=== PATIENT | female | born 1985 | race Hispanic/Latino ===

== ENCOUNTER 2017-08-11 21:12 | Emergency (ER) | payer MEDICAID ==
[2017-08-11 21:33] VITALS: BP 141/81
== END 2017-08-11 21:53 | disposition left against medical advice (07) ==
LOC: ED 21:12
DX: R10.9 Unspecified abdominal pain (principal); Z53.21 Procedure and treatment not carried out due to patient leaving prior to being seen by health care provider

== ENCOUNTER 2017-08-16 10:50 | Emergency (ER) | payer MEDICAID ==
[2017-08-16 11:46] LABS: Basophils # (Auto) 0.1 K/mm3 (0.0-0.1); Basophils % (Auto) 1.2 % (0.0-1.8); Eosinophils # (Auto) 0.2 K/mm3 (0.0-0.4); Eosinophils % (Auto) 1.9 % (0.0-4.3); Hematocrit 39.2 % (30.3-42.9); Hemoglobin 13.6 gm/dl (10.1-14.3); Lymphocytes # (Auto) 2.4 K/mm3 (1.2-5.4); Lymphocytes % (Auto) 30.3 % (13.4-35.0); Mean Corpuscular HGB Conc 35 % (30-34); Mean Corpuscular Hemoglobin 30 pg (28-32); Mean Corpuscular Volume 86 fl (79-97); Monocytes # (Auto) 0.5 K/mm3 (0.0-0.8); Monocytes % (Auto) 6.4 % (0.0-7.3); Platelet Count 228 K/mm3 (140-440); Red Blood Count 4.58 M/mm3 (3.65-5.03); Red Cell Distribution Width 12.9 % (13.2-15.2)
[2017-08-16 12:33] LABS: Bilirubin,Urine NEG (Negative); Blood,Urine MOD (Negative); Color,Urine Yellow (Yellow); Mucus,Urine FEW /HPF; Protein,Urine <15 mg/dL mg/dL (Negative); Urobilinogen,Urine < 2.0 mg/dL (<2.0)
--- NOTE | 2017-08-16 14:47 | Ultrasound Report ---
ULTRASOUND OB LESS THAN 14 WEEKS - TRANSABDOMINAL AND TRANSVAGINAL INDICATION: , vaginal spotting. COMPARISON: None similar during this gestation. FINDINGS: Transabdominal and transvaginal pelvic sonography performed in this patient with LMP of 06/28/2017 and estimated menstrual age of 7 weeks and zero days. It demonstrates a retroverted, gravid uterus estimated at 9 x 6.8 x 7.5 cm with a single, viable intrauterine gestation with heart rate of 123 beats per minute. Mean gestational sac diameter of 1.89 cm corresponds to 6 weeks and 6 days. Mean crown-rump length of 0.52 cm corresponds to 6 weeks and 2 days. A 3-4 mm yolk sac also noted. Small pelvic free fluid with few low level intrinsic echoes noted. Cervix closed. Unremarkable 4.4 x 1.8 x 3 cm left ovary. Right ovary is 4 x 2.5 x 3.6 cm and demonstrates a 2.4 x 1.6 cm solid intrinsic focus, endovaginal image 27, possibly hemorrhagic cyst/corpus luteum. Small right paraovarian fluid also incidentally noted. CONCLUSION: 1. Single, live intrauterine gestation with an ultrasound estimated age of 6 weeks and 4 days and MICH of 04/07/2018. 2. Other findings, as above. Thank you for the opportunity to participate in this patient's care.
--- NOTE | 2017-08-16 18:40 | Emergency Department Report ---
ED Female HPI - General Chief complaint: Vaginal Bleeding Stated complaint: 9 WKS PREG./VAG BLEEDING Time Seen by Provider: 08/16/17 18:31 Source: patient Mode of arrival: Ambulatory Limitations: No Limitations - History of Present Illness Initial comments: Patient is 8 para 1 with 6 miscarriages. Patient presented to the ER complaining of vaginal bleeding that started this morning was mild abdominal cramps. Patient denied any fever, nausea or vomiting. No chest pain or shortness of breath. MD Complaint: vaginal bleeding -: This morning Radiation: non-radiating Severity: mild Quality: cramping - Related Data Home Medications Medication Instructions Recorded Confirmed Last Taken Insulin NPH Human Isophane 0 02/05/13 02/05/13 02/04/13 [Humulin N] 0900 Insulin Regular, Human [Humulin R] 02/05/13 02/05/13 02/04/13 09:00 52 Previous Rx's Medication Instructions Recorded Last Taken Type NIFEdipine*For Tocolysis only* 10 mg PO TID #90 capsule 02/06/13 Unknown Rx [Procardia] Docusate Sodium [Colace] 100 mg PO BID PRN #60 capsule 03/07/13 Unknown Rx Ferrous Sulfate [Feosol 325 MG tab] 325 mg PO QDAY #30 tablet 03/07/13 Unknown Rx Ibuprofen [Motrin] 600 mg PO Q6H PRN #30 tablet 03/07/13 Unknown Rx Oxycodone HCl/Acetaminophen 1 each PO Q4HR PRN #30 tablet 03/07/13 Unknown Rx [Percocet 10-325 mg] HYDROcodone/APAP 5-325 [Paradis 1 each PO Q6HR PRN #20 tablet 09/23/13 Unknown Rx 5/325 mg] Naproxen [Naprosyn] 500 mg PO BID #30 tablet 09/23/13 Unknown Rx methOCARBAMOL [Robaxin] 500 mg PO BID #30 tab 09/23/13 Unknown Rx traMADol [Ultram 50 MG tab] 50 mg PO Q6HR PRN #30 tablet 09/23/13 Unknown Rx Ibuprofen [Motrin] 800 mg PO Q8HR PRN #20 tablet 03/18/16 Unknown Rx Sulfamethoxazole/Trimethoprim 1 each PO BID #10 tablet 03/18/16 Unknown Rx [Bactrim DS TAB] Allergies Allergy/AdvReac Type Severity Reaction Status Date / Time No Known Allergies Allergy Verified 09/23/13 13:40 ED Review of Systems ROS: Stated complaint: 9 WKS PREG./VAG BLEEDING Other details as noted in HPI Comment: All other systems reviewed and negative Constitutional: denies: chills, fever Respiratory: denies: cough, orthopnea, shortness of breath, SOB with exertion Cardiovascular: denies: chest pain, palpitations Gastrointestinal: abdominal pain. denies: nausea, vomiting, diarrhea, constipation, hematemesis, hematochezia Musculoskeletal: denies: back pain Neurological: denies: headache, weakness, paresthesias ED Past Medical Hx - Past Medical History Hx Hypertension: No Hx Congestive Heart Failure: No Hx Diabetes: Yes Hx Deep Vein Thrombosis: No Hx Renal Disease: No Hx Sickle Cell Disease: No Hx Seizures: No Hx Asthma: No Hx COPD: No Hx HIV: No - Surgical History Additional Surgical History: - Social History Smoking Status: Never Smoker Substance Use Type: None - Medications Home Medications: Home Medications Medication Instructions Recorded Confirmed Last Taken Type Insulin NPH Human Isophane 0 02/05/13 02/05/13 02/04/13 History [Humulin N] 0900 Insulin Regular, Human [Humulin R] 02/05/13 02/05/13 02/04/13 09:00 History 52 NIFEdipine*For Tocolysis only* 10 mg PO TID #90 capsule 02/06/13 Unknown Rx [Procardia] Docusate Sodium [Colace] 100 mg PO BID PRN #60 capsule 03/07/13 Unknown Rx Ferrous Sulfate [Feosol 325 MG tab] 325 mg PO QDAY #30 tablet 03/07/13 Unknown Rx Ibuprofen [Motrin] 600 mg PO Q6H PRN #30 tablet 03/07/13 Unknown Rx Oxycodone HCl/Acetaminophen 1 each PO Q4HR PRN #30 tablet 03/07/13 Unknown Rx [Percocet 10-325 mg] HYDROcodone/APAP 5-325 [Paradis 1 each PO Q6HR PRN #20 tablet 09/23/13 Unknown Rx 5/325 mg] Naproxen [Naprosyn] 500 mg PO BID #30 tablet 09/23/13 Unknown Rx methOCARBAMOL [Robaxin] 500 mg PO BID #30 tab 09/23/13 Unknown Rx traMADol [Ultram 50 MG tab] 50 mg PO Q6HR PRN #30 tablet 09/23/13 Unknown Rx Ibuprofen [Motrin] 800 mg PO Q8HR PRN #20 tablet 03/18/16 Unknown Rx Sulfamethoxazole/Trimethoprim 1 each PO BID #10 tablet 03/18/16 Unknown Rx [Bactrim DS TAB] ED Physical Exam - General Limitations: No Limitations General appearance: alert, in no apparent distress - Head Head exam: Present: atraumatic, normocephalic, normal inspection - Eye Eye exam: Present: normal appearance, PERRL - ENT ENT exam: Present: normal exam, normal orophraynx, mucous membranes moist - Neck Neck exam: Present: normal inspection, full ROM. Absent: tenderness, meningismus, lymphadenopathy, thyromegaly - Respiratory Respiratory exam: Present: normal lung sounds bilaterally. Absent: respiratory distress, wheezes, rales, rhonchi, stridor, chest wall tenderness, accessory muscle use, decreased breath sounds, prolonged expiratory - Cardiovascular Cardiovascular Exam: Present: regular rate, normal rhythm, normal heart sounds - GI/Abdominal GI/Abdominal exam: Present: soft, normal bowel sounds. Absent: distended, tenderness, guarding, rebound, rigid, organomegaly, mass, bruit, pulsatile mass , hernia - Extremities Exam Extremities exam: Present: normal inspection, full ROM, normal capillary refill - Back Exam Back exam: Present: normal inspection, full ROM. Absent: tenderness, CVA tenderness (R), CVA tenderness (L), muscle spasm, paraspinal tenderness, vertebral tenderness - Neurological Exam Neurological exam: Present: alert, oriented X3, CN II-XII intact, normal gait - Skin Skin exam: Present: warm, intact, normal color ED Course Vital Signs 08/16/17 08/16/17 11:10 17:48 Temperature 98.1 F 97.8 F Pulse Rate 83 88 Respiratory 18 18 Rate Blood Pressure 135/81 Blood Pressure 126/71 [Left] O2 Sat by Pulse 99 98 Oximetry ED Medical Decision Making - Lab Data Result diagrams: 08/16/17 11:28 - Radiology Data Radiology results: report reviewed Referring Physician: ED DOC Patient Name: DORIS HARRIS Date of : 1985 Sex: Female Report Date: 2017-08-16 Report Status: Finalized Findings [facility] [address] [place] [address] Ultrasound Report Signed Patient: DORIS HARRIS MR#: [id number] : 1985 Acct:[id number] Age/Sex: 32 / F ADM Date: 08/16/17 Loc: ED Attending Dr: Ordering Physician: JESENIA VELARDE MD Date of Service: 08/16/17 Procedure(s): US OB transvaginal Accession Number(s): [id number] cc: JESENIA VELARDE MD ULTRASOUND OB LESS THAN 14 WEEKS - TRANSABDOMINAL AND TRANSVAGINAL INDICATION: , vaginal spotting. COMPARISON: None similar during this gestation. FINDINGS: Transabdominal and transvaginal pelvic sonography performed in this patient with LMP of 06/28/2017 and estimated menstrual age of 7 weeks and zero days. It demonstrates a retroverted, gravid uterus estimated at 9 x 6.8 x 7.5 cm with a single, viable intrauterine gestation with heart rate of 123 beats per minute. Mean gestational sac diameter of 1.89 cm corresponds to 6 weeks and 6 days. Mean crown-rump length of 0.52 cm corresponds to 6 weeks and 2 days. A 3-4 mm yolk sac also noted. Small pelvic free fluid with few low level intrinsic echoes noted. Cervix closed. Unremarkable 4.4 x 1.8 x 3 cm left ovary. Right ovary is 4 x 2.5 x 3.6 cm and demonstrates a 2.4 x 1.6 cm solid intrinsic focus, endovaginal image 27, possibly hemorrhagic cyst/corpus luteum. Small right paraovarian fluid also incidentally noted. CONCLUSION: 1. Single, live intrauterine gestation with an ultrasound estimated age of 6 weeks and 4 days and MICH of 04/07/2018. 2. Other findings, as above. Thank you for the opportunity to participate in this patient's care. Transcribed By: RS Dictated By: KADI SHERMAN MD Electronically Authenticated By: KADI SHERMAN MD Signed Date/Time: 08/16/17 144 DD/ 36 TD/TT: 08/16/17 1442 - Medical Decision Making Advised patient to follow-up with her OB doctor. Patient stated that she has an appointment tomorrow with her OB doctor. Critical care attestation.: If time is entered above; I have spent that time in minutes in the direct care of this critically ill patient, excluding procedure time. ED Disposition Clinical Impression: Abdominal pain affecting , Vaginal bleeding during Disposition: - TO HOME OR SELFCARE Is pt being admited?: No Condition: Stable Instructions: Abdominal Pain in (ED) Referrals: PRIMARY CARE, [Primary Care Provider] - 3-5 Days
[2017-08-16 19:48] VITALS: BP 122/76
== END 2017-08-16 20:04 | disposition home or self-care (01) ==
LOC: ED 10:50
DX: O26.891 Other specified pregnancy related conditions, first trimester (principal); R10.9 Unspecified abdominal pain; O20.9 Hemorrhage in early pregnancy, unspecified; Z3A.01 Less than 8 weeks gestation of pregnancy
CPT/HCPCS: 36415; 76801; 76817; 81001; 84702; 85025; 86850; 86900; 86901; 99284; J2790

== ENCOUNTER 2018-01-09 12:09 | Outpatient (CLI) | payer MEDICAID ==
[2018-01-09 14:03] VITALS: BP 120/65
[2018-01-09] MEDS ORDERED: LACTATED RINGERS 500 ML IV ONE (14:38)
--- NOTE | 2018-01-09 16:37 | Ultrasound Report ---
FINAL REPORT EXAM: US OB LIMITED HISTORY: decreased fluid TECHNIQUE: Transabdominal OB ultrasound. PRIORS: None currently available. FINDINGS: Single intrauterine . Presentation: Cephalic. heart rate: 141 BPM. Placenta: Anterior. Not completely evaluated. Amniotic fluid index: 20.4 cm. Within normal limits. IMPRESSION: Single live intrauterine .
== END 2018-01-09 16:47 | disposition home or self-care (01) ==
LOC: TRG 12:09
PROVIDERS: ATTEND Obstetrics & Gynecology
DX: O47.03 False labor before 37 completed weeks of gestation, third trimester (principal); O24.913 Unspecified diabetes mellitus in pregnancy, third trimester; O99.213 Obesity complicating pregnancy, third trimester; Z3A.30 30 weeks gestation of pregnancy
CPT/HCPCS: 59025; 76815; 82962; 96360; J7120

== ENCOUNTER 2019-07-01 15:37 | Emergency (ER) | payer MEDICAID ==
[2019-07-01 21:50] VITALS: BP 136/93
== END 2019-07-01 19:13 | disposition left against medical advice (07) ==
LOC: TRG 15:37 → ED 15:37 → TRG 15:38 → LD 15:47 → EDSTATUS 16:43 → ED 19:13
DX: R51 Headache (principal); M54.5 Low back pain; M25.521 Pain in right elbow; M25.561 Pain in right knee; Z53.21 Procedure and treatment not carried out due to patient leaving prior to being seen by health care provider
CPT/HCPCS: 82962

== ENCOUNTER 2019-10-27 20:09 | Outpatient (CLI) | payer MEDICAID ==
[2019-10-27] MEDS ORDERED: LACTATED RINGERS 1,000 ML IV ONE (21:09)
[2019-10-27 21:38] LABS: Basophils # (Auto) 0.1 K/mm3 (0.0-0.1); Basophils % (Auto) 1.4 % (0.0-1.8); Eosinophils % (Auto) 0.4 % (0.0-4.3); Hematocrit 35.7 % (30.3-42.9); Hemoglobin 12.1 gm/dl (10.1-14.3); Lymphocytes # (Auto) 2.6 K/mm3 (1.2-5.4); Lymphocytes % (Auto) 34.2 % (13.4-35.0); Mean Corpuscular HGB Conc 34 % (30-34); Mean Corpuscular Volume 83 fl (79-97); Monocytes # (Auto) 0.5 K/mm3 (0.0-0.8); Monocytes % (Auto) 7.2 % (0.0-7.3); Platelet Count 171 K/mm3 (140-440); Red Blood Count 4.31 M/mm3 (3.65-5.03); Red Cell Distribution Width 12.8 % (13.2-15.2)
[2019-10-27 21:43] LABS: Bacteria,Urine 2+ /HPF (Negative); Bilirubin,Urine NEG (Negative); Blood,Urine MOD (Negative); Color,Urine Yellow (Yellow); Mucus,Urine FEW /HPF; Urobilinogen,Urine < 2.0 mg/dL (<2.0)
[2019-10-27 23:01] VITALS: BP 165/94
[2019-10-27] MEDS ORDERED: BETAMET ACET/BETAMET NA PH 6 MG/ML INJ 5 ML MDV IM SCH (23:45)
[2019-10-28] MEDS ORDERED: FLU VACC QUAD 2019-20 (3 YR UP)/PF 60 MCG/0.5 ML SYRINGE IM ONE (12:00)
[2019-10-28] MEDS ORDERED: PNEUMOCOCCAL 23 Valent 0.5 ML VIAL IM ONE (12:00)
== END 2019-10-27 23:30 | disposition home or self-care (01) ==
LOC: TRG 20:09 → APU 20:17 → TRG 23:30
PROVIDERS: ATTEND Obstetrics & Gynecology
DX: O36.8330 Maternal care for abnormalities of the fetal heart rate or rhythm, third trimester, not applicable or unspecified (principal); O36.8130 Decreased fetal movements, third trimester, not applicable or unspecified; O24.113 Pre-existing type 2 diabetes mellitus, in pregnancy, third trimester; E11.9 Type 2 diabetes mellitus without complications; O99.333 Smoking (tobacco) complicating pregnancy, third trimester; F17.200 Nicotine dependence, unspecified, uncomplicated; Z3A.35 35 weeks gestation of pregnancy
CPT/HCPCS: 36415; 59025; 81001; 82962; 85025; 86850; 86900; 86901; 87086; 96372; J0702; 96360; J7120

== ENCOUNTER 2019-10-28 12:48 | Inpatient (IN) | payer MEDICAID ==
[2019-10-28] MEDS ORDERED: LACTATED RINGERS 500 ML IV ONE (14:00)
[2019-10-28 14:14] LABS: Alanine Aminotransferase 16 units/L (7-56); Uric Acid 4.5 mg/dL (3.5-7.6)
[2019-10-28] MEDS ORDERED: MAGNESIUM HYDROXIDE (MOM) ORAL LIQD UDC PO PRN (15:52)
[2019-10-28] MEDS ORDERED: ONDANSETRON 4 MG/2 ML INJ IV PRN (15:52)
[2019-10-28] MEDS ORDERED: SODIUM CHLORIDE NASAL SPRAY 44ML NS PRN (15:52)
[2019-10-28 16:25] LABS: Bilirubin,Urine NEG (Negative); Blood,Urine NEG (Negative); Color,Urine Yellow (Yellow); Mucus,Urine FEW /HPF; Urobilinogen,Urine < 2.0 mg/dL (<2.0)
[2019-10-28 16:34] LABS: Amphetamine Screen,Urine PRESUMPTIVE NEGATIVE; Benzodiazepines Screen,Urine PRESUMPTIVE NEGATIVE; Cannabinoid Screen,Urine PRESUMPTIVE NEGATIVE; Cocaine Screen,Urine PRESUMPTIVE NEGATIVE; Methadone Screen,Urine PRESUMPTIVE NEGATIVE; Opiate Screen,Urine PRESUMPTIVE NEGATIVE
[2019-10-28] MEDS ORDERED: INSULIN REGULAR, HUMAN 100 UNITS/1 ML SUB-Q SCH (17:00)
--- NOTE | 2019-10-28 17:02 | Ultrasound Report ---
ULTRASOUND OBSTETRIC LIMITED ULTRASOUND BIOPHYSICAL PROFILE INDICATION / CLINICAL INFORMATION: labor. Clinical Gestational Age (GA): 35.5 weeks.days COMPARISON: None available. FINDINGS: BREATHING MOVEMENT = 2 GROSS BODY MOVEMENT = 2 TONE = 2 QUALITATIVE AMNIOTIC FLUID VOLUME = 2 TOTAL BIOPHYSICAL SCORE = 8/8 HEART RATE (beats per minute): 161 AMNIOTIC FLUID INDEX (cm) = 15.3 (normal = 7-24 cm) PRESENTATION: Cephalic. ADDITIONAL FINDINGS: Placenta is anterior and grade 2. IMPRESSION: 1. Biophysical Score = 8/8 2. No evidence of placental abruption. Signer Name: Andrew Guzmán MD Signed: 10/28/2019 4:57 PM Workstation Name: [id number]
[2019-10-28] MEDS ORDERED: DEXTROSE 50% IN WATER (25GM) 50 ML SYRINGE IV PRN ×2 (17:04→17:32)
[2019-10-28] MEDS: INSULIN REGULAR, HUMAN 100 UNITS/1 ML SUB-Q PRN (19:45)
[2019-10-28] MEDS ORDERED: INSULIN NPH, HUMAN 100 UNIT/1 ML SUB-Q SCH (22:00)
[2019-10-28] MEDS ORDERED: BETAMET ACET/BETAMET NA PH 6 MG/ML INJ 5 ML MDV IM SCH (22:00)
[2019-10-29] MEDS: LACTATED RINGERS 1,000 ML IV SCH ×3 (01:24→14:52)
[2019-10-29] MEDS: ACETAMINOPHEN 325 MG TAB PO PRN ×2 (06:24→11:02)
[2019-10-29] MEDS: INSULIN REGULAR, HUMAN 100 UNITS/1 ML SUB-Q PRN ×3 (06:41→19:24)
--- NOTE | 2019-10-29 07:00 | History and Physical Report ---
History of Present Illness Date of examination: 10/29/19 Date of admission: 10/28/19 15:38 Chief complaint: contractions History of present illness: Pt is a 34 year old female MICH 11/27/19 by 19 wk yohana at 35w6d who presents with complaint of vaginal bleeding and contractions. In triage, no vaginal bleeding was noted and the patient's cervix was noted to be closed. However, upon further review of her history, the patient is an insulin dependent diabetic who was not taken insulin at all this and apart from an ultrasound in Jun 2019 did not have her first obstetric visit until earlier this week. She is Rh negative, and did not receive her Rhogam at 28 wks. The patient's blood pressures were elevated in triage as well so the decision was made to admit this patient for further observation, 24 hr urine collection, and initiation of insulin regimen. Past History Past Medical History: diabetes, other (Rh Negative ) Past Surgical History: section (x 2 ) Family/Genetic History: diabetes, heart disease Social history: no significant social history - Obstetrical History Expected Date of Delivery: 11/27/19 Actual Gestation: 35 Week(s) 6 Day(s) : 9 Para: 3 Hx # Term Pregnancies: 3 Number of Pregnancies: 0 Spontaneous Abortions: 5 Induced : 0 Number of Living Children: 3 Medications and Allergies Allergies Allergy/AdvReac Type Severity Reaction Status Date / Time No Known Allergies Allergy Verified 10/27/19 20:36 Home Medications Medication Instructions Recorded Confirmed Last Taken Type Insulin NPH Human Isophane 78 unit SQ QHS 02/05/13 03/14/18 03/13/18 22:00 History [Humulin N] Insulin Regular, Human [Humulin R] 48 unit SQ QAMDIAB 02/05/13 03/14/18 03/13/18 06:00 History Ferrous Sulfate 325 mg PO BID #30 tablet. 03/14/18 Unknown Rx Ibuprofen [Motrin] 600 mg PO Q8H PRN #30 tablet 03/14/18 Unknown Rx Insulin NPH, Human [NovoLIN N] 68 unit SQ QAMDIAB 03/14/18 03/14/18 03/13/18 06:00 History Insulin Regular, Human [Novolin R] 58 unit SQ QPM 03/14/18 03/14/18 03/13/18 20:00 History Multivitamin Tablet 1 tab PO QDAY 03/14/18 03/14/18 03/13/18 06:00 History oxyCODONE /ACETAMINOPHEN [Percocet 1 tab PO Q6HR PRN #30 tablet 03/14/18 Unknown Rx 5/325] Cefuroxime Axetil [Ceftin] 500 mg PO Q12H #16 ml 03/17/18 Unknown Rx Famotidine [Pepcid] 20 mg PO BID #20 tablet 03/17/18 Unknown Rx Sertraline [Zoloft] 50 mg PO QDAY #30 tablet 03/17/18 Unknown Rx Zolpidem Tartrate [Ambien] 5 mg PO QHS #3 tablet 03/17/18 Unknown Rx cephALEXin [Keflex] 500 mg PO Q12HR #14 cap 03/17/18 Unknown Rx Cefuroxime Axetil [Ceftin] 500 mg PO Q12H #14 tab 03/18/18 Unknown Rx Adults Multivitamin Tablet 1 PO DAILY 10/27/19 10/27/19 09:00 History Hair, Skin and Nails Gummies 1 PO 10/27/19 10/26/19 09:00 History Tylenol 650 mg PO PRN 10/27/19 10/27/19 10/26/19 22:00 History Active Meds: Active Medications Acetaminophen (Tylenol) 650 mg PO Q4H PRN PRN Reason: Pain MILD(1-3)/Fever >100.5/NIETO Last Admin: 10/29/19 06:24 Dose: 650 mg Documented by: Dextrose (D50w (25gm) Syringe) 50 ml IV Q30MIN PRN; Protocol PRN Reason: Hypoglycemia Dextrose (D50w (25gm) Syringe) 50 ml IV Q30MIN PRN; Protocol PRN Reason: Hypoglycemia Docusate Sodium (Colace) 100 mg PO Q12H PRN PRN Reason: Constipation Lactated Ringer's (Lactated Ringers) 1,000 mls @ 125 mls/hr IV DIRECT ZEB Last Admin: 10/29/19 01:24 Dose: 125 mls/hr Documented by: Insulin Human NPH (Humulin N) 42 unit SUB-Q QDDIAB ZEB Insulin Human NPH (Humulin N) 15 unit SUB-Q QHS ZEB Insulin Human Regular (Humulin R) 22 units SUB-Q QDDIAB ZEB Insulin Human Regular (Humulin R) 15 units SUB-Q QPMDIAB ZEB Last Admin: 10/28/19 17:25 Dose: 15 units Documented by: Insulin Human Regular (Humulin R) 0 units SUB-Q Q6HR PRN; Protocol PRN Reason: Hyperglycemia Last Admin: 10/29/19 06:41 Dose: 6 units Documented by: Labetalol HCl (Labetalol) 200 mg PO BID ZEB Last Admin: 10/28/19 22:47 Dose: 200 mg Documented by: Magnesium Hydroxide (Milk Of Magnesia) 30 ml PO QHS PRN PRN Reason: Laxative Effect Multivitamins/Iron/Calcium ( Vitamin) 1 each PO QDAY [facility] Ondansetron HCl (Zofran) 4 mg IV Q6H PRN PRN Reason: Nausea And Vomiting Sodium Chloride (Deep Sea) 2 spray NS Q4H PRN PRN Reason: Congestion Review of Systems All systems: negative - Vital Signs Vital signs: Vital Signs Pulse Pulse Ox 111 H 97 10/28/19 13:06 10/28/19 13:06 Temp Pulse Resp BP Pulse Ox 97.7 F 115 H 18 118/63 98 10/29/19 02:20 10/29/19 05:54 10/29/19 06:47 10/29/19 05:30 10/29/19 05:54 - Physical Exam Breasts: Positive: deferred Abdomen: Positive: soft (obese, gravid ) Uterus: Positive: enlarged (gravid ) Extremities: Positive: normal - Obstetrical FHR: auscultation normal Uterine Contraction Monitor Mode: External Uterine Contraction Pattern: Irregular Uterine Tone Measurement Phase: Resting Results Result Diagrams: 10/28/19 13:40 Abnormal lab results 10/28/19 10/28/19 10/28/19 Range/Units 13:39 13:40 19:46 Creatinine 0.6 L (0.7-1.2) mg/dL POC Glucose 248 H 253 H (70-105) Lactate Dehydrogenase 243 H (91-180) units/L Ur Specific [place] (1.003-1.030) Urine Total Protein (5-11.8) mg/dL 10/28/19 10/28/19 10/29/19 Range/Units Unknown Unknown 06:33 Creatinine (0.7-1.2) mg/dL POC Glucose 307 H (70-105) Lactate Dehydrogenase (91-180) units/L Ur Specific [place] 1.031 H (1.003-1.030) Urine Total Protein 74 H (5-11.8) mg/dL All other labs normal. Assessment and Plan A: IUP at 35w6d; pt now s/p 2 doses of betamethasone; BPP 8/8 10/28/19 Insufficient Care Insulin Dependent Diabetes, non-complaint Gestational Hypertension, evaluate for preeclampsia; currently on Labetalol 200 mg BID Obesity Rh Negative, no Rhogam at 28 wks Previous x 2 P: Admit to antepartum service Begin insulin regimen, anticipate increased glucose after steroid administration 24 hr urine collection for total protein Rhogam workup MFM consult Ultrasound for EFW
[2019-10-29] MEDS ORDERED: INSULIN REGULAR, HUMAN 100 UNITS/1 ML SUB-Q SCH (08:00)
[2019-10-29] MEDS ORDERED: INSULIN NPH, HUMAN 100 UNIT/1 ML SUB-Q SCH (08:00)
--- NOTE | 2019-10-29 08:56 | Ultrasound Report ---
ULTRASOUND OBSTETRIC, follow-up Indication: IUP 35 wks, limited care Findings: There is a single intrauterine . BPD = 8.6 cm = 34 weeks, 5 day(s). Head circumference = 32.2 cm = 36 weeks, 2 day(s). Note: Difficult to measure due to position. Abdominal circumference = 37.3 cm = 41 weeks, 2 day(s). Femur length = 7.4 cm = 38 weeks, 0 day(s). Overall estimated sonographic age = 37 weeks, 4 day(s). heart rate is 150 beats per minute. Estimated weight is 3676 grams position is cephalic. Placenta is anterior and grade 2 . Amniotic fluid volume appears normal. Impression: 1. Single living intrauterine with estimated sonographic age of 37 weeks, 4 day(s). 2. No sonographic abnormality identified. Signer Name: Gary Arguello MD Signed: 10/29/2019 8:52 AM Workstation Name: [id number]
--- NOTE | 2019-10-29 10:22 | Consultation ---
History of Present Illness Consult date: 10/29/19 History of present illness: Ms. Khanna is a 34 year old currently at 35+6wks GA with a history of type 2 diabetes mellitus with non-compliance who presented to [facility] in the setting of vaginal bleeding and contractions. The patient was ruled out for labor. While in the OB Triage area, she was noted to have elevated blood pressures and was admitted for r/o preeclampsia as well as initiation of her insulin regimen, as she reports that she has not been taking it. Of note, the patient has not been seen by Maternal Medicine since 06/2019 due to being scared to leave her house due to COVID-19. Currently, the patient states that she has a 4/10 frontal headache that has been present for 1 wek. She denies any headache history. She did receive 650mg of tylenol this AM without any effect. She also states that her vision is persistently blurry. She denies any ruq pain. She denies CTX/VB/LOF. +FM. Past History Past Medical History: diabetes, other (Rh Negative ) Past Surgical History: section (x 2 ) Family/Genetic History: diabetes, heart disease - Obstetrical History : 9 Medications and Allergies Allergies Allergy/AdvReac Type Severity Reaction Status Date / Time No Known Allergies Allergy Verified 10/27/19 20:36 Home Medications Medication Instructions Recorded Confirmed Last Taken Type Insulin Regular, Human [Humulin R] 48 unit SQ QAMDIAB 02/05/13 10/29/19 03/13/18 06:00 History Insulin NPH, Human [NovoLIN N] 68 unit SQ QAMDIAB 03/14/18 10/29/19 03/13/18 06:00 History Insulin Regular, Human [Novolin R] 58 unit SQ QPM 03/14/18 10/29/19 03/13/18 20:00 History Multivitamin Tablet 1 tab PO QDAY 03/14/18 10/29/19 03/13/18 06:00 History Tylenol 650 mg PO PRN 10/27/19 10/29/19 10/26/19 22:00 History Active Meds: Active Medications Acetaminophen (Tylenol) 650 mg PO Q4H PRN PRN Reason: Pain MILD(1-3)/Fever >100.5/NIETO Last Admin: 10/29/19 06:24 Dose: 650 mg Documented by: Dextrose (D50w (25gm) Syringe) 50 ml IV Q30MIN PRN; Protocol PRN Reason: Hypoglycemia Dextrose (D50w (25gm) Syringe) 50 ml IV Q30MIN PRN; Protocol PRN Reason: Hypoglycemia Docusate Sodium (Colace) 100 mg PO Q12H PRN PRN Reason: Constipation Lactated Ringer's (Lactated Ringers) 1,000 mls @ 125 mls/hr IV DIRECT [facility] Last Admin: 10/29/19 09:46 Dose: 125 mls/hr Documented by: Insulin Human NPH (Humulin N) 42 unit SUB-Q QDDIAB [facility] Last Admin: 10/29/19 08:03 Dose: 42 unit Documented by: Insulin Human NPH (Humulin N) 15 unit SUB-Q QHS [facility] Insulin Human Regular (Humulin R) 22 units SUB-Q QDDIAB [facility] Last Admin: 10/29/19 08:04 Dose: 22 units Documented by: Insulin Human Regular (Humulin R) 15 units SUB-Q QPMDIAB [facility] Last Admin: 10/28/19 17:25 Dose: 15 units Documented by: Insulin Human Regular (Humulin R) 0 units SUB-Q Q6HR PRN; Protocol PRN Reason: Hyperglycemia Last Admin: 10/29/19 06:41 Dose: 6 units Documented by: Labetalol HCl (Labetalol) 200 mg PO BID [facility] Last Admin: 10/28/19 22:47 Dose: 200 mg Documented by: Magnesium Hydroxide (Milk Of Magnesia) 30 ml PO QHS PRN PRN Reason: Laxative Effect Multivitamins/Iron/Calcium ( Vitamin) 1 each PO QDAY [facility] Ondansetron HCl (Zofran) 4 mg IV Q6H PRN PRN Reason: Nausea And Vomiting Sodium Chloride (Deep Sea) 2 spray NS Q4H PRN PRN Reason: Congestion - Vital Signs Vital signs: Vital Signs Pulse Pulse Ox 111 H 97 10/28/19 13:06 10/28/19 13:06 Temp Pulse Resp BP Pulse Ox 98.2 F 93 H 16 132/71 97 10/29/19 07:34 10/29/19 07:47 10/29/19 07:34 10/29/19 07:34 10/29/19 07:47 - Physical Exam Abdomen: Positive: normal appearance, soft, other (No ruq/epigastric tenderness) - Obstetrical FHR: category 1 Uterine Contraction Pattern: Absent Results Result Diagrams: 10/28/19 13:40 Abnormal lab results 10/28/19 10/28/19 10/28/19 Range/Units 13:39 13:40 19:46 Creatinine 0.6 L (0.7-1.2) mg/dL POC Glucose 248 H 253 H (70-105) Lactate Dehydrogenase 243 H (91-180) units/L Ur Specific [place] (1.003-1.030) Urine Total Protein (5-11.8) mg/dL 10/28/19 10/28/19 10/29/19 Range/Units Unknown Unknown 06:33 Creatinine (0.7-1.2) mg/dL POC Glucose 307 H (70-105) Lactate Dehydrogenase (91-180) units/L Ur Specific [place] 1.031 H (1.003-1.030) Urine Total Protein 74 H (5-11.8) mg/dL All other labs normal. Ultrasound: pending, report reviewed, image reviewed, other (10/28/2019: EFW 3673g. Cephalic, BPP 12/12) Assessment and Plan IMPRESSIONS: IUP at 35+6 weeks gestation Type 2 diabets mellitus with non-compliance history, currently on NPH 42/, Regular / __/ New onset gestational hypertension with concern for preeclampsia with severe features Ordered for labetalol 200mg BID Rh negative Previous delivery x 2 s/p betamethasone per primary OBGYN Patient currently with headache and blurry vision Currently undergoing 24hr urine collection RECOMMENDATIONS: I had an extensive discussion with the patient regarding the pathophysiology of preeclampsia with the patient and its implications. I have reviewed the ACOG criteria for preeclampsia, as noted in Practice Bulletin #202 (May 2018). My concern at this point is that the patient has preeclampsia with severe features. Therefore, I do recommend the following: -Repeat CBC, CMP -Attempt to alleviate the patient's headache with conservative measures such a tylenol -Please obtain Neonatology consultation -If the patient has persistent headache or other signs of preeclampsia with severe features, magneisum sulfate for seizure prophylaxis should be initiated and the patient should be delivered. -If the patient does remain , complete 24hr urine. Delivery is then recommended at no later than 37 weeks. Contraindication to continued expectant management, in which delivery is indicated, include the following: -Persistent Cerbrovascular disturbances -Unrelenting right upper quadrant pain -Liver function tests greater than 2x the upper limit of normal -Thrombocytopenia <100,000/microL -Creatinine greater than 1.1 mg/dL -Eclampsia -Pulmonary edema -Hypertension requiring upward titration of oral agents or IV anti-hypetensives With respect to type 2 diabetes: The significance and management of pregestational diabetes in were reviewed. We discussed maternal risks including including preeclampsia, ashok an delivery, diabetic ketoacidosis, and progression of nephropathy or retinopathy. We also reviewed risks, including abnormalities of growth (intrauterine growth restriction or macrosomia), defects, hypoglycemia and hyperbilirubinemia, as well as the risk for stillbirth with sub optimal control. In addition, children of women with pregestational diabetes may have higher risks for diabetes and obesity later in life. Going forward: -The patient has received BMZ. Due to her poorly controlled diabetes, the patient will be experiencing hyperglycemia. Patients with poorly controlled diabetes were not administered late steroids in the ALPS trial (Deshawn et al, [facility], 2016) for this reason. Therefore, I do recommend the following: -Increase the patient's regimen by 20% to the following: NPH 50 units in the AM, 18 units in the PM. Regular insulin 26 units with breakfast and 20 units with dinner. -The following regular insulin sliding scale is recommended for postprandial values exceeding 140mg/dL: 2 units for blood sugars 140-160 4 units for blood sugars 161-180 6 units for blood sugars 181-200 8 units for blood sugars 201-220 10 units for blood sugars greater than 220 -The patient should have a consultation with Endocrinology while the patient is in house and likely , as she will need Endocrinology to manage her blood sugars when she is no longer . These recommendations were communicated to Dr. Malik at 1048AM.
[2019-10-29] MEDS: PRENATAL VIT27-FE FUMARATE-FOLIC ACID VIT TAB PO SCH (10:33)
[2019-10-29 13:30] LABS: Hemoglobin 11.1 gm/dl (10.1-14.3); Mean Corpuscular HGB Conc 34 % (30-34); Mean Corpuscular Volume 83 fl (79-97); Platelet Count 170 K/mm3 (140-440); Red Blood Count 3.97 M/mm3 (3.65-5.03); Red Cell Distribution Width 13.2 % (13.2-15.2)
[2019-10-29] MEDS ORDERED: METOCLOPRAMIDE 10 MG/2 ML INJ IV ONE (13:36)
[2019-10-29] MEDS ORDERED: BICITRA ORAL LIQD 30ML PO SCH (13:36)
[2019-10-29] MEDS ORDERED: FAMOTIDINE 20 MG/2 ML INJ IV SCH (13:36)
[2019-10-29 13:49] LABS: Alanine Aminotransferase 14 units/L (7-56); BUN/Creatinine Ratio 22; Blood Urea Nitrogen 13 mg/dL (7-17); Hemolysis Index 1
[2019-10-29] MEDS ORDERED: ceFAZolin/Water 2 GM/20 ML 2 GM/20 ML SYRINGE IV NR (14:00)
[2019-10-29] MEDS ORDERED: OXYTOCIN 20 UNIT/1000ML DRIP 20 UNITS/1,000 ML BAG IV SCH (14:00)
--- NOTE | 2019-10-29 14:56 | Anesthesia Day of Surgery ---
Anesthesia Day of Surgery - Day of Surgery Patient Examined: Yes Patient H&P Reviewed: Yes Patient is NPO: Yes Beta Blockers: No Cardiac Clearance: No Pulmonary Clearance: No Gabo's Test: N/A
[2019-10-29] MEDS ORDERED: NALOXONE 0.4 MG/1 ML INJ IV PRN (14:58)
[2019-10-29] MEDS ORDERED: ONDANSETRON 4 MG/2 ML INJ IV PRN (14:58)
--- NOTE | 2019-10-29 14:58 | Anesthesia Consultation ---
Anesthesia Consult and Med Hx Date of service: 10/29/19 - Airway Anesthetic Teeth Evaluation: Poor ROM Head & Neck: Adequate Mental/Hyoid Distance: Adequate Mallampati Class: Class III Intubation Access Assessment: Probably Good - Pulmonary Exam CTA: Yes - Cardiac Exam Cardiac Exam: RRR - Pre-Operative Health Status ASA Pre-Surgery Classification: ASA3 Proposed Anesthetic Plan: Spinal - Pulmonary Hx Smoking: No Hx Asthma: No Hx Respiratory Symptoms: No SOB: No COPD: No Home Oxygen Therapy: No Hx Pneumonia: No Hx Sleep Apnea: No - Cardiovascular System Hx Hypertension: Yes (With previous ) Hx Coronary Artery Disease: No Hx Heart Attack/AMI: No Hx Angina: No Hx Percutaneous Transluminal Coronary Angioplasty (PTCA): No Hx Cardia Arrhythmia: No Hx Pacemaker: No Hx Internal Defibrillator: No Hx Valvular Heart Disease: No Hx Heart Murmur: No Hx Peripheral Vascular Disease: No - Central Nervous System Hx Neuromuscular Disorder: No Hx Seizures: No CVA: No Hx Back Pain: No Hx Psychiatric Problems: Yes (depression / no meds at time) - Gastrointestinal Hx Ulcer: No Hx Gastroesophageal Reflux Disease: No - Endocrine Hx Renal Disease: No Hx End Stage Renal Disease: No Hx Cirrhosis: No Hx Liver Disease: No Hx Insulin Dependent Diabetes: Yes (uncontrolled) Hx Non-Insulin Dependent Diabetes: No Hx Thyroid Disease: No Hx Hypothyroidism: No Hx Hyperthyroidism: No - Hematic Hx Anemia: No Hx Sickle Cell Disease: No - Other Systems Hx Alcohol Use: No Hx Substance Use: No Hx Cancer: No Hx Obesity: Yes (BMI 37.4)
[2019-10-29] MEDS ORDERED: KETOROLAC 30 MG/1 ML INJ ONE (15:11)
[2019-10-29] MEDS ORDERED: ONDANSETRON 4 MG/2 ML INJ ONE (15:11)
[2019-10-29] MEDS ORDERED: DEXMEDETOMIDINE 200 MCG/2 ML VIAL IV ONE (15:12)
--- NOTE | 2019-10-29 15:27 | Procedure Note ---
OB Delivery Note - Delivery Date of Delivery: 10/29/19 Surgeon: COMPA MERINO Estimated blood loss: other (900 mL) - Section Preop diagnosis: repeat Postop diagnosis: same section procedure: repeat low transverse Disposition: PACU Complications: none - A at 1 minute: 5 at 5 minutes: 8 Gender: Female (Weight 7 pounds 0 ounces)
--- NOTE | 2019-10-29 15:27 | Event Note ---
Date: 10/29/19 Patient has had 2 doses of Tylenol without any resolution of her headache. She currently reports visual changes. The patient's impending condition is concerning for preeclampsia. We will proceed with a repeat delivery. The patient declines sterilization.
--- NOTE | 2019-10-29 15:28 | Operative Report ---
Operative Report Operative Report: Date of surgery: October 29, 2019 Preoperative diagnosis: Uncontrolled insulin-dependent diabetes; Severe preec lampsia; no care; previous delivery; at 35+6 weeks Postoperative diagnosis: Same as above Procedure: Repeat delivery and lysis of adhesions Surgeon: Carla Meehan M.D. Anesthesia: Regional Estimated blood loss: 900 mL Urine output: 600 mL IV fluids: 1300 mL Findings: Liveborn female with Apgars of 5 and 8 weight 7 pounds 0 ounces Indications: 34-year-old -0-5-3 at 35+6 weeks who presents to the antepartum service for observation secondary to noncompliance with her insulin- dependent diabetes. The patient has not had care during this and has not been taking her insulin. She presents with elevated blood pressures, persistent headache that has been unresolved with medical management and visual changes. Procedure: The patient was taken to the operating room and given regional anesthesia without complication. She was prepped and draped in a normal sterile fashion. A Pfannenstiel skin incision was made down to layer the fascia which was nicked in the midline extended laterally with the Bovie cautery. The superior aspect of the rectus fascia was grasped with Rosanne clamps x2 and the rectus muscles off sharply. The fascia was noted to be thickened and scarred. This was done in inferior fashion as well. The rectus muscle midline and peritoneum entered bluntly. An Binh retractor was then inserted. A bladder blade was placed. The vesicouterine peritoneum was then entered sharply with Metzenbaum scissors. A bladder flap was created digitally. The lower uterine segment was noted to be thinned prior to the incision. A low transverse uterine incision was then made and extended digitally. There was clear fluid upon entry into the uterine cavity. The head was delivered through the incision with fundal pressure. A nuchal cord x1 was manually reduced. The cord was clamped and cut x2 and was passed off to pediatrics. The placenta was then manually extracted. The uterus was then exteriorized and cleared of clots and debris. The uterine incision was then closed in a running locked fashion with 0 Vicryl additional imbricating stitch was applied for 2 layer closure. The posterior cul-de-sac was then copiously irrigated. The uterus was replaced back into the abdomen and pelvis were the gutters were then irrigated. The Binh retractor was then removed. The peritoneum was then reapproximated with 3-0 Vicryl incorporating the rectus muscle. The fascia was then closed with 0 Vicryl in a running fashion. The skin was then reapproximated with 3-0 Monocryl on a Huber needle subcuticular fashion. Steri-Strips to place across the incision and a Crede procedures performed at the end of the surgery. A pressure dressing was applied to the incision. The surgery productive of a liveborn female with Apgars of 5 and 8 weight 7 pounds 0 ounces. The patient was taken to the recovery room in stable condition. All sponge laps and needle counts correct x2.
[2019-10-29] MEDS ORDERED: WATER FOR IRRIG STERILE 1,500 ML BOTTLE IR ONE (15:48)
[2019-10-29] MEDS ORDERED: SODIUM CHLORIDE 0.9% IRR 1,500 ML BOTTLE IR ONE (15:48)
[2019-10-29] MEDS ORDERED: PHENYLEPHRINE 10 MG/1 ML INJ SDV ONE (15:52)
[2019-10-29] MEDS ORDERED: MAGNESIUM SULFATE 40GM/1000ML 40 GM/1,000 ML BAG IV SCH (17:00)
[2019-10-29] MEDS: HYDROmorphone 1 MG/1 ML INJ IV PRN ×2 (17:52→18:18)
[2019-10-29] MEDS: MAGNESIUM SULFATE 4 GM/100 ML BAG IV ONE ×2 (18:50→18:55)
--- NOTE | 2019-10-29 19:00 | Post Anesthesia Evaluation ---
- Post Anesthesia Evaluation Patient Participated: Yes Airway Patent: Yes Stable Respiratory Function: Yes Nausea/Vomiting: No Temp > 96.8F: Yes Pain Manageable: Yes Adequeate Hydration: Yes Anesthesia Complications: No Block Receding Appropriately: Yes Patient on Ventilator: No
[2019-10-29] MEDS ORDERED: DEXTROSE 50% IN WATER (25GM) 50 ML SYRINGE IV PRN (20:49)
--- NOTE | 2019-10-29 20:49 | Consultation ---
History of Present Illness - Reason for Consult Consult date: 10/29/19 DM Requesting physician: COMPA MERINO - History of Present Illness 34 YO Female with DM. Consult placed by Dr. Merino for DM. Patient resting comfortably in her room. Patient denies fever, chills, chest pain, palpitation, productive cough, polydipsia polyuria. No reported nursing events. Past History Past Medical History: diabetes Past Surgical History: Social history: no significant social history Family history: diabetes, hypertension Medications and Allergies Allergies Allergy/AdvReac Type Severity Reaction Status Date / Time No Known Allergies Allergy Verified 10/27/19 20:36 Home Medications Medication Instructions Recorded Confirmed Last Taken Type Insulin Regular, Human [Humulin R] 48 unit SQ QAMDIAB 02/05/13 10/29/19 03/13/18 06:00 History Insulin NPH, Human [NovoLIN N] 68 unit SQ QAMDIAB 03/14/18 10/29/19 03/13/18 06:00 History Insulin Regular, Human [Novolin R] 58 unit SQ QPM 03/14/18 10/29/19 03/13/18 20:00 History Multivitamin Tablet 1 tab PO QDAY 03/14/18 10/29/19 03/13/18 06:00 History Tylenol 650 mg PO PRN 10/27/19 10/29/19 10/26/19 22:00 History Active Meds: Active Medications Acetaminophen (Tylenol) 650 mg PO Q4H PRN PRN Reason: Pain MILD(1-3)/Fever >100.5/NIETO Last Admin: 10/29/19 11:02 Dose: 650 mg Documented by: Citric Acid/Sodium Citrate (Bicitra) 30 ml PO ONCE ZEB Stop: 10/30/19 23:00 Last Admin: 10/29/19 14:19 Dose: 30 ml Documented by: Dextrose (D50w (25gm) Syringe) 50 ml IV Q30MIN PRN; Protocol PRN Reason: Hypoglycemia Docusate Sodium (Colace) 100 mg PO Q12H PRN PRN Reason: Constipation Famotidine (Pepcid) 20 mg IV ONCE ZEB Stop: 10/29/19 23:00 Last Admin: 10/29/19 14:19 Dose: 20 mg Documented by: Hydromorphone HCl (Dilaudid) 0.5 mg IV Q5M PRN PRN Reason: BREAK Last Admin: 10/29/19 18:18 Dose: 0.5 mg Documented by: Lactated Ringer's (Lactated Ringers) 1,000 mls @ 125 mls/hr IV DIRECT [facility] Last Admin: 10/29/19 14:52 Dose: 125 mls/hr Documented by: Oxytocin/Sodium Chloride (Pitocin/Ns 20 Unit/1000ml Drip) 20 units in 1,000 mls @ 0 mls/hr IV TITR ZEB Cefazolin Sodium (Ancef/Sterile Water 2 Gm/20 Ml) 2 gm in 20 mls @ 80 mls/hr IV PREOP NR; Protocol Stop: 10/30/19 13:59 Magnesium Sulfate (Magnesium Sulfate 40gm/1000ml) 40 gm in 1,000 mls @ 50 mls/hr IV DIRECT ZEB Magnesium Sulfate (Magnesium Sulfate 4gm/100ml) 4 gm in 100 mls @ 25 mls/hr IV ONCE ONE Stop: 10/29/19 20:56 Last Admin: 10/29/19 18:55 Dose: 25 mls/hr Documented by: Insulin Human NPH (Humulin N) 42 unit SUB-Q QDDIAB [facility] Last Admin: 10/29/19 08:03 Dose: 42 unit Documented by: Insulin Human NPH (Humulin N) 15 unit SUB-Q QHS [facility] Insulin Human Regular (Humulin R) 22 units SUB-Q QDDIAB [facility] Last Admin: 10/29/19 08:04 Dose: 22 units Documented by: Insulin Human Regular (Humulin R) 15 units SUB-Q QPMDIAB [facility] Last Admin: 10/28/19 17:25 Dose: 15 units Documented by: Insulin Human Regular (Humulin R) 0 units SUB-Q Q6HR PRN; Protocol PRN Reason: Hyperglycemia Last Admin: 10/29/19 19:24 Dose: 1 units Documented by: Labetalol HCl (Labetalol) 200 mg PO BID [facility] Last Admin: 10/29/19 10:34 Dose: 200 mg Documented by: Magnesium Hydroxide (Milk Of Magnesia) 30 ml PO QHS PRN PRN Reason: Laxative Effect Multivitamins/Iron/Calcium ( Vitamin) 1 each PO QDAY [facility] Last Admin: 10/29/19 10:33 Dose: 1 each Documented by: Naloxone HCl (Naloxone) 0.2 mg IV Q2MIN PRN PRN Reason: Res Rate </= 8 or 02 SAT < 92% Ondansetron HCl (Zofran) 4 mg IV Q8H PRN PRN Reason: Nausea And Vomiting Sodium Chloride (Deep Sea) 2 spray NS Q4H PRN PRN Reason: Congestion Review of Systems Constitutional: no weight loss, no weight gain, no fever, no chills Ears, nose, mouth and throat: no ear pain, no ear discharge, no tinnitis, no decreased hearing, no nose pain Breasts: no change in shape, no swelling, no mass Cardiovascular: no chest pain, no orthopnea, no rapid/irregular heart beat, no edema Respiratory: no cough, no cough with sputum, no excessive sputum, no shortness of breath Gastrointestinal: no nausea, no vomiting, no diarrhea Rectal: no pain, no incontinence, no bleeding Musculoskeletal: no neck stiffness, no neck pain, no shooting arm pain, no arm numbness/tingling Integumentary: no rash, no pruritis, no redness, no sores, no wounds Neurological: no head injury, no transient paralysis, no weakness, no parathesias, no tingling Psychiatric: no anxiety, no memory loss, no sleep disturbances, no hypersomnia, no change in appetite Endocrine: no cold intolerance, no polyphagia, no excessive thirst, no polyuria, no nocturia, no flushing Hematologic/Lymphatic: no easy bruising, no easy bleeding, no lymphadenopathy, no lymphedema Allergic/Immunologic: no urticaria, no allergic rhinitis, no persistent infections, no anaphylaxis Exam - Constitutional Vitals: Temp Pulse Resp BP Pulse Ox 98.0 F 79 18 132/73 96 10/29/19 20:16 10/29/19 20:45 10/29/19 20:16 10/29/19 20:45 10/29/19 18:00 General appearance: Present: obese - EENT Eyes: Present: PERRL ENT: hearing intact, clear oral mucosa - Neck Neck: Present: supple, normal ROM - Respiratory Respiratory effort: normal Respiratory: bilateral: CTA - Cardiovascular Heart Sounds: Present: S1 & S2. Absent: rub, click - Extremities Extremities: pulses symmetrical, No edema Peripheral Pulses: within normal limits - Abdominal General gastrointestinal: Present: soft, non-tender, non-distended, normal bowel sounds Female genitourinary: Present: normal - Integumentary Integumentary: Present: clear, warm, dry - Musculoskeletal Musculoskeletal: gait normal, strength equal bilaterally - Psychiatric Psychiatric: appropriate mood/affect, intact judgment & insight - Neurologic Neurologic: CNII-XII intact, moves all extremities Results - Labs CBC & Chem 7: 10/30/19 13:50 10/29/19 12:39 Labs: Abnormal lab results 10/28/19 10/29/19 10/29/19 Range/Units 19:46 06:33 10:56 Sodium (137-145) mmol/L Carbon Dioxide (22-30) mmol/L Creatinine (0.7-1.2) mg/dL Glucose (65-100) mg/dL POC Glucose 253 H 307 H 270 H (70-105) Total Protein (6.3-8.2) g/dL Albumin (3.9-5) g/dL Ur Total Protein 24 Hr (2-200) mg/dL Urine Total Protein (5-11.8) mg/dL 10/29/19 10/29/19 10/29/19 Range/Units 12:39 15:19 19:33 Sodium 134 L (137-145) mmol/L Carbon Dioxide 17 L (22-30) mmol/L Creatinine 0.6 L (0.7-1.2) mg/dL Glucose 235 H (65-100) mg/dL POC Glucose 187 H 148 H (70-105) Total Protein 5.7 L (6.3-8.2) g/dL Albumin 3.0 L (3.9-5) g/dL Ur Total Protein 24 Hr (2-200) mg/dL Urine Total Protein (5-11.8) mg/dL 10/29/19 Range/Units Unknown Sodium (137-145) mmol/L Carbon Dioxide (22-30) mmol/L Creatinine (0.7-1.2) mg/dL Glucose (65-100) mg/dL POC Glucose (70-105) Total Protein (6.3-8.2) g/dL Albumin (3.9-5) g/dL Ur Total Protein 24 Hr 648.00 H (2-200) mg/dL Urine Total Protein 18 H (5-11.8) mg/dL Assessment and Plan - Patient Problems (1) Diabetes Current Visit: No Status: Acute Qualifiers: Diabetes mellitus type: type 2 Diabetes mellitus complication status: with unspecified complications Plan to address problem: Consistent carbohydrate diet, Accu-Chek, sliding scale insulin therapy, hypoglycemia protocol.
[2019-10-29] MEDS ORDERED: oxyCODONE /ACETAMINOPHEN 5-325MG TAB PO PRN (20:59)
[2019-10-29] MEDS: oxyCODONE /ACETAMINOPHEN 5-325MG TAB PO PRN (21:15)
[2019-10-30] MEDS: INSULIN LISPRO 100 UNIT/ML SUB-Q SCH ×3 (01:00→06:29)
[2019-10-30] MEDS: KETOROLAC 30 MG/1 ML INJ IV PRN ×3 (03:13→15:22)
--- NOTE | 2019-10-30 07:44 | Progress Note ---
Assessment and Plan A: POD1 s/p rLTCS Preeclampsia with severe features, on mag sulfate IDDM, s/p medicine consult Mild range BP Awaiting post-op H&H P: Consistent carbohydrate diet Sliding scale insulin Pain relief as requested Continue mag sulfate x24 hours post-op Subjective - Subjective Date of service: 10/30/19 Principal diagnosis: s/p repeat LTCS, severe preeclampsia Interval history: POD1 s/p repeat LTCS. On mag sulfate for preeclampsia with severe features. Denies NIETO, scotomata, RUQ pain. Patient reports: appetite normal, flatus, pain poorly controlled, other (Yusuf in place) : in NICU Objective - Vital Signs Latest vital signs: Vital Signs Temp Pulse Resp BP BP Pulse Ox 10/30/19 06:45 75 149/74 10/30/19 05:45 76 135/74 10/30/19 04:45 67 133/76 10/30/19 03:45 71 151/85 10/30/19 02:45 68 145/79 10/30/19 01:45 68 137/84 10/30/19 00:45 67 137/78 10/29/19 23:45 67 145/70 10/29/19 23:00 67 145/70 10/29/19 22:45 70 136/86 10/29/19 21:45 70 114/59 10/29/19 20:45 79 132/73 10/29/19 20:16 98.0 F 78 18 118/68 118/68 10/29/19 19:45 78 112/55 10/29/19 18:00 97.9 F 66 11 L 121/74 96 10/29/19 17:45 70 11 L 120/75 99 10/29/19 17:40 97.8 F 10/29/19 17:30 64 13 119/68 96 10/29/19 17:15 97.6 F 68 15 116/68 97 10/29/19 17:10 73 15 114/65 96 10/29/19 17:05 77 13 122/60 97 10/29/19 17:00 97.8 F 72 13 117/65 95 10/29/19 12:08 93 H 98 10/29/19 12:03 94 H 107/64 98 10/29/19 12:02 98 F 92 H 18 107/64 97 10/29/19 11:57 18 10/29/19 11:02 16 10/29/19 10:34 107 H 131/84 10/29/19 10:33 107 H 131/84 10/29/19 07:47 93 H 97 10/29/19 07:42 61 97 Intake and Output 10/29/19 10/29/19 10/30/19 15:59 23:59 07:59 Intake Total 4637.5 1500 Output Total 665 1150 Balance 4637.5 835 -1150 Intake: IV 4637.5 1500 Lactated Ringers 1,000 ml 1637.5 @ 125 mls/hr IV DIRECT ZEB Rx#:[id number] Left Proximal Port 3000 Forearm Output: Urine 665 1150 Indwelling 30 Indwelling Catheter 1150 Other: Total, Output Amount 300 Estimated Blood Loss 900 - Exam Lungs: Present: Normal air movement Abdomen: Present: soft. Absent: distention Uterus: Present: firm, fundal height below umbilicus. Absent: bogginess Incision: Present: dressed - Labs Labs: Abnormal lab results 10/29/19 10/29/19 10/29/19 Range/Units 10:56 12:39 15:19 Sodium 134 L (137-145) mmol/L Carbon Dioxide 17 L (22-30) mmol/L Creatinine 0.6 L (0.7-1.2) mg/dL Glucose 235 H (65-100) mg/dL POC Glucose 270 H 187 H (70-105) Magnesium (1.7-2.3) mg/dL Total Protein 5.7 L (6.3-8.2) g/dL Albumin 3.0 L (3.9-5) g/dL Ur Total Protein 24 Hr (2-200) mg/dL Urine Total Protein (5-11.8) mg/dL 10/29/19 10/29/19 10/30/19 Range/Units 19:33 Unknown 01:43 Sodium (137-145) mmol/L Carbon Dioxide (22-30) mmol/L Creatinine (0.7-1.2) mg/dL Glucose (65-100) mg/dL POC Glucose 148 H 151 H (70-105) Magnesium (1.7-2.3) mg/dL Total Protein (6.3-8.2) g/dL Albumin (3.9-5) g/dL Ur Total Protein 24 Hr 648.00 H (2-200) mg/dL Urine Total Protein 18 H (5-11.8) mg/dL 10/30/19 10/30/19 Range/Units 01:45 06:38 Sodium (137-145) mmol/L Carbon Dioxide (22-30) mmol/L Creatinine (0.7-1.2) mg/dL Glucose (65-100) mg/dL POC Glucose 133 H (70-105) Magnesium 3.30 H (1.7-2.3) mg/dL Total Protein (6.3-8.2) g/dL Albumin (3.9-5) g/dL Ur Total Protein 24 Hr (2-200) mg/dL Urine Total Protein (5-11.8) mg/dL
[2019-10-30] MEDS ORDERED: SODIUM CHLORIDE 0.9% 1000 ML 1,000 ML IV SCH (09:00)
[2019-10-30] MEDS: INSULIN REGULAR, HUMAN 100 UNITS/1 ML SUB-Q SCH ×3 (12:32→22:43)
[2019-10-30 14:26] LABS: Basophils % (Auto) 0.2 % (0.0-1.8); Eosinophils % (Auto) 0.3 % (0.0-4.3); Hematocrit 28.8 % (30.3-42.9); Hemoglobin 9.8 gm/dl (10.1-14.3); Lymphocytes # (Auto) 1.9 K/mm3 (1.2-5.4); Mean Corpuscular HGB Conc 34 % (30-34); Mean Corpuscular Volume 85 fl (79-97); Monocytes # (Auto) 0.7 K/mm3 (0.0-0.8); Monocytes % (Auto) 7.9 % (0.0-7.3); Platelet Count 153 K/mm3 (140-440); Red Blood Count 3.38 M/mm3 (3.65-5.03); Red Cell Distribution Width 13.2 % (13.2-15.2)
[2019-10-30] MEDS: oxyCODONE /ACETAMINOPHEN 5-325MG TAB PO PRN ×2 (15:23→22:40)
--- NOTE | 2019-10-30 15:39 | Progress Note ---
Assessment and Plan Diabetes mellitus type 2 -Continue consistent carb diet, monitor blood glucose QA CHS -Continue NPH twice daily before meals -Start on sliding scale of insulin qachs, check A1c -Monitor for hypoglycemia with hypoglycemia protocol - will d/c all other insulin HTN, cont BB s/p , Mx per primary DVT Px, ambulatory Subjective Date of service: 10/30/19 Principal diagnosis: s/p repeat LTCS, severe preeclampsia Objective - Constitutional Vitals: Vital Signs - 12hr 10/30/19 10/30/19 10/30/19 03:45 04:45 05:45 Temperature Pulse Rate 71 67 76 Respiratory Rate Blood Pressure 151/85 133/76 135/74 10/30/19 10/30/19 10/30/19 06:45 07:45 08:00 Temperature 97.8 F Pulse Rate 75 81 Respiratory Rate Blood Pressure 149/74 146/88 10/30/19 10/30/19 10/30/19 08:45 08:57 08:58 Temperature Pulse Rate 86 83 Respiratory 18 Rate Blood Pressure 140/85 141/84 10/30/19 10/30/19 10/30/19 09:45 10:45 11:05 Temperature Pulse Rate 82 77 77 Respiratory Rate Blood Pressure 155/88 147/79 147/79 10/30/19 10/30/19 10/30/19 11:45 12:45 13:45 Temperature Pulse Rate 91 H 88 88 Respiratory Rate Blood Pressure 143/86 150/84 115/73 10/30/19 10/30/19 10/30/19 14:45 15:26 15:34 Temperature Pulse Rate 86 84 86 Respiratory Rate Blood Pressure 124/70 131/76 128/70 - Labs CBC & Chem 7: 10/30/19 13:50 11/02/19 10:19 Labs: Abnormal lab results 10/29/19 10/29/19 10/30/19 Range/Units 19:33 Unknown 01:43 RBC (3.65-5.03) M/mm3 Hgb (10.1-14.3) gm/dl Hct (30.3-42.9) % [place] % (Auto) (0.0-7.3) % Seg Neutrophils % (40.0-70.0) % POC Glucose 148 H 151 H (70-105) Magnesium (1.7-2.3) mg/dL Ur Total Protein 24 Hr 648.00 H (2-200) mg/dL Urine Total Protein 18 H (5-11.8) mg/dL 10/30/19 10/30/19 10/30/19 Range/Units 01:45 06:38 13:50 RBC 3.38 L (3.65-5.03) M/mm3 Hgb 9.8 L (10.1-14.3) gm/dl Hct 28.8 L (30.3-42.9) % [place] % (Auto) 7.9 H (0.0-7.3) % Seg Neutrophils % 71.6 H (40.0-70.0) % POC Glucose 133 H (70-105) Magnesium 3.30 H (1.7-2.3) mg/dL Ur Total Protein 24 Hr (2-200) mg/dL Urine Total Protein (5-11.8) mg/dL 10/30/19 Range/Units 13:50 RBC (3.65-5.03) M/mm3 Hgb (10.1-14.3) gm/dl Hct (30.3-42.9) % [place] % (Auto) (0.0-7.3) % Seg Neutrophils % (40.0-70.0) % POC Glucose (70-105) Magnesium 4.00 H (1.7-2.3) mg/dL Ur Total Protein 24 Hr (2-200) mg/dL Urine Total Protein (5-11.8) mg/dL
[2019-10-30] MEDS ORDERED: INSULIN NPH, HUMAN 100 UNIT/1 ML SUB-Q SCH ×2 (17:02)
[2019-10-31] MEDS: oxyCODONE /ACETAMINOPHEN 5-325MG TAB PO PRN ×3 (06:37→23:13)
[2019-10-31] MEDS: INSULIN REGULAR, HUMAN 100 UNITS/1 ML SUB-Q SCH ×5 (06:38→23:14)
[2019-10-31] MEDS ORDERED: INSULIN REGULAR, HUMAN 100 UNITS/1 ML SUB-Q SCH ×2 (08:00→17:00)
[2019-10-31] MEDS: PRENATAL VIT27-FE FUMARATE-FOLIC ACID VIT TAB PO SCH (08:46)
[2019-10-31] MEDS: DOCUSATE SODIUM 100 MG CAP PO PRN (08:46)
--- NOTE | 2019-10-31 09:00 | Progress Note ---
Assessment and Plan - Patient Problems (1) Diabetes Current Visit: No Status: Acute Qualifiers: Diabetes mellitus type: type 2 Diabetes mellitus complication status: with unspecified complications Plan to address problem: Discussed the importance of continuing insulin regimen at home Consider discharge home tomorrow (2) Obesity Current Visit: No Status: Acute (3) S/P section Current Visit: No Status: Acute Subjective - Subjective Date of service: 10/31/19 Principal diagnosis: s/p repeat LTCS, severe preeclampsia Interval history: Postop day #2 status post a repeat delivery. The patient is currently under a sliding scale for her glucose controlled with maintenance insulin. She reports a desire to quit smoking. Reports some discomfort today after walking to the NICU. She is tolerating a regular diet. Patient reports: appetite normal, voiding normally [place]: in NICU Objective - Vital Signs Latest vital signs: Vital Signs Temp Pulse Resp BP BP Pulse Ox 10/31/19 08:46 75 147/89 10/31/19 08:05 98 F 75 18 147/89 97 10/31/19 04:00 98.6 F 79 18 113/62 10/31/19 00:00 98 F 80 16 118/69 10/30/19 22:40 74 134/83 10/30/19 20:25 66 159/91 10/30/19 20:24 75 128/74 10/30/19 20:23 98.3 F 81 18 142/78 96 10/30/19 20:22 81 130/72 10/30/19 19:30 97.7 F 18 10/30/19 19:19 88 139/82 10/30/19 18:45 77 133/73 10/30/19 17:45 82 139/79 10/30/19 16:45 82 134/80 10/30/19 15:45 90 123/77 10/30/19 15:34 86 128/70 10/30/19 15:26 84 131/76 10/30/19 14:45 86 124/70 10/30/19 14:05 98.3 F 10/30/19 13:45 88 115/73 10/30/19 12:45 88 150/84 10/30/19 11:45 91 H 143/86 10/30/19 11:05 77 147/79 10/30/19 10:45 77 147/79 10/30/19 09:45 82 155/88 Intake and Output 10/30/19 10/31/19 10/31/19 22:59 06:59 14:59 Intake Total 2000 300 240 Output Total 1000 1000 Balance 1000 -700 240 Intake: IV 2000 Left Proximal Port 2000 Forearm Oral 240 Intake, Free Water 300 Output: Urine 1000 1000 Indwelling Catheter 500 Void 500 1000 Other: Total, Intake Amount 240 Total, Output Amount 500 1000 # Voids Indwelling Catheter 2 Void 1 2 - Exam Abdomen: Present: normal appearance, soft - Labs Labs: Abnormal lab results 10/30/19 10/30/19 10/30/19 Range/Units 12:27 13:50 13:50 RBC 3.38 L (3.65-5.03) M/mm3 Hgb 9.8 L (10.1-14.3) gm/dl Hct 28.8 L (30.3-42.9) % [place] % (Auto) 7.9 H (0.0-7.3) % Seg Neutrophils % 71.6 H (40.0-70.0) % POC Glucose 228 H (70-105) Hemoglobin A1c (4-6) % Magnesium 4.00 H (1.7-2.3) mg/dL 10/30/19 10/30/19 10/30/19 Range/Units 13:50 16:56 22:35 RBC (3.65-5.03) M/mm3 Hgb (10.1-14.3) gm/dl Hct (30.3-42.9) % [place] % (Auto) (0.0-7.3) % Seg Neutrophils % (40.0-70.0) % POC Glucose 280 H 283 H (70-105) Hemoglobin A1c 9.2 H (4-6) % Magnesium (1.7-2.3) mg/dL 10/31/19 Range/Units 06:19 RBC (3.65-5.03) M/mm3 Hgb (10.1-14.3) gm/dl Hct (30.3-42.9) % [place] % (Auto) (0.0-7.3) % Seg Neutrophils % (40.0-70.0) % POC Glucose 223 H (70-105) Hemoglobin A1c (4-6) % Magnesium (1.7-2.3) mg/dL
[2019-10-31] MEDS: INSULIN LISPRO 100 UNIT/ML SUB-Q SCH ×2 (12:00→18:46)
--- NOTE | 2019-10-31 16:20 | Progress Note ---
Assessment and Plan Diabetes mellitus type 2 -Continue consistent carb diet, monitor blood glucose QA CHS -Continue NPH twice daily before breakfast and before dinner along with sliding scale of insulin qachs, - A1c 9.2, will adjust NPH dose based on 24-hour sliding scale requirement - Monitor for hypoglycemia with hypoglycemia protocol - d/c all other insulin HTN, cont BB s/p , Mx per primary DVT Px, ambulatory Subjective Date of service: 10/31/19 Principal diagnosis: s/p repeat LTCS, severe preeclampsia Objective - Constitutional Vitals: Vital Signs - 12hr 10/31/19 10/31/19 08:05 08:46 Temperature 98 F Pulse Rate 75 75 Respiratory 18 Rate Blood Pressure 147/89 Blood Pressure 147/89 [Right] O2 Sat by Pulse 97 Oximetry - Labs CBC & Chem 7: 10/30/19 13:50 11/02/19 10:19 Labs: Abnormal lab results 10/30/19 10/30/19 10/30/19 Range/Units 12:27 13:50 16:56 POC Glucose 228 H 280 H (70-105) Hemoglobin A1c 9.2 H (4-6) % 10/30/19 10/31/19 10/31/19 Range/Units 22:35 06:19 12:44 POC Glucose 283 H 223 H 121 H (70-105) Hemoglobin A1c (4-6) % 10/31/19 Range/Units 14:52 POC Glucose 354 H (70-105) Hemoglobin A1c (4-6) %
[2019-10-31] MEDS: INSULIN NPH, HUMAN 100 UNIT/1 ML SUB-Q SCH (18:41)
[2019-10-31] MEDS ORDERED: INSULIN NPH, HUMAN 100 UNIT/1 ML SUB-Q SCH (22:00)
[2019-11-01] MEDS: IBUPROFEN 600 MG TAB PO SCH ×3 (06:03→14:00)
[2019-11-01] MEDS: INSULIN REGULAR, HUMAN 100 UNITS/1 ML SUB-Q SCH ×4 (08:29→22:52)
[2019-11-01] MEDS: INSULIN NPH, HUMAN 100 UNIT/1 ML SUB-Q SCH ×2 (08:30→16:57)
[2019-11-01] MEDS: oxyCODONE /ACETAMINOPHEN 5-325MG TAB PO PRN ×2 (08:36→14:15)
[2019-11-01] MEDS: PRENATAL VIT27-FE FUMARATE-FOLIC ACID VIT TAB PO SCH (08:40)
[2019-11-01] MEDS: DOCUSATE SODIUM 100 MG CAP PO PRN (08:45)
--- NOTE | 2019-11-01 10:50 | Progress Note ---
Assessment and Plan A: POD3 s/p rLTCS 1. Severe headache 2. Preeclampsia with severe features, s/p mag sulfate. Currently normal to mild range BP. 3. IDDM, s/p medicine consult 4. Acute anemia due to blood loss 5. Vulvovaginal candidiasis 6. Lower extremity edema P: 1. Anesthesia consult 2. Continue Labetalol 3. Continue Insulin as ordered by IM, consistent carbohydrate diet 4. Ferrous sulfate supplementation 5. Diflucan 6. Ambulation, PO fluids Subjective - Subjective Date of service: 11/01/19 Principal diagnosis: s/p repeat LTCS, severe preeclampsia, IDDM uncontrolled Interval history: POD3 s/p repeat LTCS. S/p mag sulfate for preeclampsia with severe features. S/p medicine consult for IDDM. Patient reports: appetite normal, voiding normally, flatus, pain poorly controlled (headache, exacerbated by light), ambulating normally, other (significant LE edema, reports yeast infection) [place]: in NICU Objective - Vital Signs Latest vital signs: Vital Signs Temp Pulse Resp BP BP Pulse Ox 11/01/19 07:33 98.4 F 77 18 145/67 95 11/01/19 04:51 78 141/76 97 10/31/19 23:13 103 H 153/86 10/31/19 23:10 90 153/86 96 10/31/19 23:09 98.9 F 93 H 20 156/80 98 10/31/19 20:25 98.5 F 88 20 166/90 98 10/31/19 16:10 98.4 F 81 18 142/79 97 Intake and Output 10/31/19 11/01/19 11/01/19 23:59 07:59 15:59 Intake Total 480 240 Balance 480 240 Intake: Oral 480 240 Other: Total, Intake Amount 240 240 # Voids Void 1 - Exam Breasts: Present: other (pumping). Absent: pain Lungs: Present: Normal air movement Abdomen: Present: soft. Absent: distention Uterus: Present: firm, fundal height below umbilicus. Absent: bogginess Extremities: Present: edema (to bilateral mid-shins) Incision: Present: normal, dry, intact - Labs Labs: Abnormal lab results 10/31/19 10/31/19 10/31/19 Range/Units 12:44 14:52 18:45 POC Glucose 121 H 354 H 222 H (70-105) 10/31/19 11/01/19 Range/Units 23:21 07:52 POC Glucose 156 H 192 H (70-105)
[2019-11-01] MEDS ORDERED: FLUCONAZOLE 200 MG TAB PO ONE ×2 (11:30→17:00)
[2019-11-01] MEDS ORDERED: FLUCONAZOLE 100 MG TAB PO SCH (11:30)
[2019-11-01] MEDS: FERROUS SULFATE 325 MG TAB PO SCH ×2 (13:00→22:41)
--- NOTE | 2019-11-01 14:15 | Progress Note ---
Assessment and Plan Diabetes mellitus type 2 -Continue consistent carb diet, monitor blood glucose QA CHS -Continue NPH twice daily before breakfast and before dinner along with sliding scale of insulin qachs, - A1c 9.2, BG appears much stable -Patient is medically stable, further adjustment of insulin and follow-up for diabetes could be done as an outpatient and with HTN, cont BB s/p , Mx per primary DVT Px, ambulatory Subjective Date of service: 11/01/19 Principal diagnosis: s/p repeat LTCS, severe preeclampsia, IDDM uncontrolled Objective - Constitutional Vitals: Vital Signs - 12hr 11/01/19 11/01/19 04:51 07:33 Temperature 98.4 F Pulse Rate 78 77 Respiratory 18 Rate Blood Pressure 141/76 145/67 O2 Sat by Pulse 97 95 Oximetry - Labs CBC & Chem 7: 10/30/19 13:50 11/02/19 10:19 Labs: Abnormal lab results 10/31/19 10/31/19 10/31/19 Range/Units 14:52 18:45 23:21 POC Glucose 354 H 222 H 156 H (70-105) 11/01/19 11/01/19 Range/Units 07:52 12:08 POC Glucose 192 H 201 H (70-105)
[2019-11-01] MEDS: BUTALB/ACETAMINOPHEN/CAFFEINE TAB PO PRN ×2 (16:41→22:41)
[2019-11-01] MEDS ORDERED: hydrALAZINE 20 MG/1 ML INJ IV PRN (17:46)
[2019-11-01] MEDS: NICOTINE 14 MG/24 HR PATCH TD SCH (22:41)
--- NOTE | 2019-11-02 08:08 | Progress Note ---
Assessment and Plan Diabetes mellitus type 2 -Continue consistent carb diet, monitor blood glucose QACHS -Continue NPH twice daily before breakfast and before dinner along with sliding scale of insulin qachs, - A1c 9.2, BG appears much stable today, will also add metformin to increase insulin sensitivity -Patient is medically stable, further adjustment of insulin and follow-up for diabetes could be done as an outpatient and with HH HTN, increased BB dose and added procardia today Headache, likely tension headache - will follow CT head s/p , Mx per primary DVT Px, ambulatory Subjective Date of service: 11/02/19 Principal diagnosis: s/p repeat LTCS, severe preeclampsia, IDDM uncontrolled Objective - Constitutional Vitals: Vital Signs - 12hr 11/01/19 11/02/19 22:42 04:47 Temperature 98.4 F Pulse Rate 85 84 Respiratory 20 Rate Blood Pressure 113/70 149/87 O2 Sat by Pulse 96 97 Oximetry - Labs CBC & Chem 7: 10/30/19 13:50 11/02/19 10:19 Labs: Abnormal lab results 11/01/19 11/01/19 11/01/19 Range/Units 12:08 17:07 22:59 POC Glucose 201 H 122 H 158 H (70-105)
[2019-11-02] MEDS: INSULIN NPH, HUMAN 100 UNIT/1 ML SUB-Q SCH ×2 (08:31→18:08)
[2019-11-02] MEDS: oxyCODONE /ACETAMINOPHEN 5-325MG TAB PO PRN ×2 (08:32→18:07)
[2019-11-02] MEDS: INSULIN REGULAR, HUMAN 100 UNITS/1 ML SUB-Q SCH ×4 (09:40→22:15)
[2019-11-02] MEDS: metFORMIN 500 MG TAB PO SCH ×2 (09:41→17:05)
[2019-11-02] MEDS: IBUPROFEN 600 MG TAB PO SCH (09:41)
--- NOTE | 2019-11-02 09:43 | Progress Note ---
Assessment and Plan A: POD3 s/p rLTCS 1. Headache, s/p anesthesia consult 2. Preeclampsia with severe features, s/p mag sulfate. Currently labile BP. 3. IDDM, s/p medicine consult 4. Acute anemia due to blood loss 5. Lower extremity edema 6. Desires to quit smoking 7. Anxiety P: 1. CT scan 2. Increase Labetalol to 400mg BID, add Procardia XL 30mg Qday 3. Continue Insulin as ordered by IM, consistent carbohydrate diet 4. Ferrous sulfate supplementation 5. Ambulation, PO fluids 6. Nicotine patch, Bupriopion 7. Bupriopion, Vistaril PRN Subjective - Subjective Date of service: 11/02/19 Principal diagnosis: s/p repeat LTCS, severe preeclampsia, IDDM uncontrolled Interval history: POD4 s/p repeat LTCS. S/p mag sulfate for preeclampsia with severe features. S/p medicine consult for IDDM. Patient reports: appetite normal, voiding normally, flatus, pain poorly controlled (headache not fully relieved by Fioricet), ambulating normally, other (attempting to quit smoking. Reports increase in "nerves") : in NICU Objective - Vital Signs Latest vital signs: Vital Signs Temp Pulse Resp BP BP Pulse Ox 11/02/19 04:47 84 149/87 97 11/01/19 22:42 98.4 F 85 20 113/70 96 11/01/19 18:29 158/83 11/01/19 18:26 149/87 11/01/19 18:24 75 156/85 11/01/19 18:22 153/88 11/01/19 17:44 185/97 11/01/19 16:50 97.6 F 85 18 163/92 97 11/01/19 13:26 98.1 F 88 18 159/93 97 Intake and Output 11/01/19 11/02/19 11/02/19 23:59 07:59 15:59 Intake Total 1200 360 Balance 1200 360 Intake: Oral 360 360 Intake, Free Water 840 Other: Total, Intake Amount 360 120 # Voids Void 3 1 - Exam Breasts: Present: other (pumping) Abdomen: Present: soft. Absent: distention Uterus: Present: firm, fundal height below umbilicus. Absent: bogginess Extremities: Present: edema (bilateral, to mid [place]ene) Incision: Present: normal, dry, intact - Labs Labs: Abnormal lab results 11/01/19 11/01/19 11/01/19 Range/Units 12:08 17:07 22:59 POC Glucose 201 H 122 H 158 H (70-105) 11/02/19 Range/Units 08:44 POC Glucose 197 H (70-105)
[2019-11-02] MEDS: PRENATAL VIT27-FE FUMARATE-FOLIC ACID VIT TAB PO SCH (10:41)
[2019-11-02] MEDS: FERROUS SULFATE 325 MG TAB PO SCH ×2 (10:41→21:47)
[2019-11-02] MEDS: NIFEdipine XL 30 MG TAB PO SCH (10:43)
[2019-11-02 11:14] LABS: Alanine Aminotransferase 25 units/L (7-56); Albumin 3.1 g/dL (3.9-5); BUN/Creatinine Ratio 15; Blood Urea Nitrogen 9 mg/dL (7-17); Calcium 9.1 mg/dL (8.4-10.2); Hemolysis Index 0
[2019-11-02] MEDS: buPROPion 75 MG TAB PO SCH ×2 (11:20→21:47)
[2019-11-02] MEDS: DOCUSATE SODIUM 100 MG CAP PO PRN (12:31)
--- NOTE | 2019-11-02 15:35 | Cat Scan Report ---
CT HEAD WITHOUT and with intravenous contrast. CONTRAST INDICATION / CLINICAL INFORMATION: headache. TECHNIQUE: All CT scans at this location are performed using CT dose reduction for ALARA by means of automated e xposure control. COMPARISON: None available. FINDINGS: HEMORRHAGE: No evidence of intracranial hemorrhage or extra-axial fluid collection. EXTRA-AXIAL SPACES: Cortical sulci, sylvian fissures and basilar cisterns have an unremarkable appear ance. VENTRICULAR SYSTEM: The ventricular system is of normal size and configuration. CEREBRAL PARENCHYMA: No areas of abnormal brain parenchymal attenuation are identified. There is no i ndication of recent infarction. MIDLINE SHIFT OR HERNIATION: There is no mass effect. CEREBELLUM / BRAINSTEM: Brainstem and cerebellum have an unremarkable appearance. MIDLINE STRUCTURES:No abnormalities of the pituitary gland or pineal region are identified. INTRACRANIAL VESSELS:No abnormalities are identified on this noncontrast head CT. ORBITS: visualized portions of the orbits have an unremarkable appearance. SOFT TISSUES of HEAD: No significant abnormality. CALVARIUM: Evaluation of bone windows reveals no abnormalities. PARANASAL SINUSES / MASTOID AIR CELLS: Paranasal sinuses are free from inflammatory mucosal disease. Mastoid air cells are normally pneumatized. Contrast administration: Following administration of intravenous contrast material enhancement of nor mal vascular structures is demonstrated. No areas of abnormal contrast enhancement are identified. IMPRESSION: 1. No intracranial abnormalities are identified on head CT without and with intravenous contrast. Signer Name: Yan Madrid MD Signed: 11/02/2019 3:31 PM Workstation Name: [id number]
[2019-11-02] MEDS: BUTALB/ACETAMINOPHEN/CAFFEINE TAB PO PRN (21:50)
[2019-11-03] MEDS: IBUPROFEN 600 MG TAB PO SCH (00:46)
[2019-11-03] MEDS ORDERED: metFORMIN 500 MG TAB PO SCH (08:32)
[2019-11-03] MEDS: INSULIN REGULAR, HUMAN 100 UNITS/1 ML SUB-Q SCH ×3 (08:39→17:04)
[2019-11-03] MEDS: BUTALB/ACETAMINOPHEN/CAFFEINE TAB PO PRN (08:39)
[2019-11-03] MEDS: metFORMIN 850 MG TAB PO SCH ×2 (08:54→17:06)
[2019-11-03] MEDS: FERROUS SULFATE 325 MG TAB PO SCH (09:11)
[2019-11-03] MEDS: buPROPion 75 MG TAB PO SCH (09:11)
[2019-11-03] MEDS: NIFEdipine XL 30 MG TAB PO SCH (09:11)
[2019-11-03] MEDS: PRENATAL VIT27-FE FUMARATE-FOLIC ACID VIT TAB PO SCH (09:11)
[2019-11-03] MEDS: NICOTINE 14 MG/24 HR PATCH TD SCH (09:12)
--- NOTE | 2019-11-03 09:13 | Progress Note ---
Assessment and Plan A: POD#5 s/p repeat section Persistent headache s/p normal head CT, no neurology service at this hospital Insulin-dependent diabetes mellitus, non-compliant, poorly controlled Preeclampsia with severe features s/p magnesium sulfate x 24 hrs Insufficient care Rh Negative s/p Rhogam P: Plan discharge today with precautions Neurology and Endocrinology referrals through the office referral system RTC in 1 wk for BP check Subjective - Subjective Date of service: 11/03/19 Principal diagnosis: s/p repeat LTCS, severe preeclampsia, IDDM uncontrolled Interval history: Pt c/o headache prior to admission which she reports is better after delivery. She had a CT head with and without contrast yesterday which was normal. Her blood glucose remains variable but is improving. + flatus. Patient reports: appetite normal, voiding normally, pain well controlled, flatus, ambulating normally, no bowel movement : in NICU Objective - Vital Signs Latest vital signs: Vital Signs Temp Pulse Resp BP BP Pulse Ox 11/03/19 08:12 98.4 F 85 20 122/70 95 11/03/19 02:26 97.8 F 78 20 111/61 94 11/03/19 00:50 97.8 F 78 20 111/61 95 11/02/19 17:23 97.9 F 95 H 20 133/87 11/02/19 12:52 98.2 F 89 20 137/88 11/02/19 10:42 76 158/90 Intake and Output 11/02/19 11/03/19 11/03/19 22:59 06:59 14:59 Intake Total 320 Balance 320 Intake: Oral 320 Other: Total, Intake Amount 320 # Voids Void 1 - Exam Breasts: Present: deferred Abdomen: Present: soft Uterus: Present: fundal height below umbilicus Extremities: Present: edema (trace ) Incision: Present: intact - Labs Labs: Abnormal lab results 11/02/19 11/02/19 11/02/19 Range/Units 10:19 12:18 17:35 Creatinine 0.6 L (0.7-1.2) mg/dL Glucose 185 H (65-100) mg/dL POC Glucose 186 H 157 H (70-105) Total Protein 5.6 L (6.3-8.2) g/dL Albumin 3.1 L (3.9-5) g/dL 11/02/19 11/03/19 Range/Units 22:19 08:29 Creatinine (0.7-1.2) mg/dL Glucose (65-100) mg/dL POC Glucose 267 H 220 H (70-105) Total Protein (6.3-8.2) g/dL Albumin (3.9-5) g/dL
[2019-11-03] MEDS: INSULIN NPH, HUMAN 100 UNIT/1 ML SUB-Q SCH ×2 (09:16→17:05)
[2019-11-03] MEDS ORDERED: LANOLIN/ZINC/DIMETHICONE (LANSINOH) 7 GM TP PRN (12:00)
--- NOTE | 2019-11-03 13:26 | Discharge Summary ---
Providers - Providers Date of Admission: 10/28/19 15:38 Date of discharge: 11/03/19 Attending physician: NORBERT GUZMAN 10/29/19 07:09 Consult to Physician [CONS] Routine Comment: Consulting Provider: PARKER VASQUEZ Physician Instructions: Reason For Exam: IUP at 35 ws, IDDM, Gestational HTN, non-compliant 10/29/19 15:36 Consult to Physician [CONS] Routine Comment: Consulting Provider: MELCHOR SELBY Physician Instructions: Reason For Exam: control of DM Primary care physician: COMPA MERINO Hospitalization Reason for admission: other (elevated blood pressure ) Delivery: Procedure: section, repeat low transverse Procedure details: Please see operative report. Other procedures: none complications: none Discharge diagnosis: delivery baby: female Hospital course: Pt was admitted with elevated blood pressures at 35 wks and found to have preeclampsia with severe features. She underwent repeat section which she tolerated well,and received magnesium sulfate for seizure prophylaxis x 24 hours after delivery. She also has poorly controlled diabetes mellitus on insulin and an internal medicine consult. She also noted a headache prior to admission that was only somewhat improved after delivery but has a normal head CT scan and no neurology service at this hospital. She was discharge on hospital day #5 with plan for Neurology and Endocrinology consults outpatient. Condition at discharge: Stable Disposition: DC-01 TO HOME OR SELFCARE - Discharge Diagnoses (1) delivery Status: Acute (2) Pre-eclampsia, severe, delivered Status: Acute (3) Insufficient care Status: Acute (4) Diabetes in Status: Acute (5) S/P section Status: Acute (6) Smoker Status: Acute (7) Diabetes mellitus complicating Status: Chronic Qualifiers: Diabetes in type: pre-existing, type 2 Trimester: third trimester Qualified Code(s): O24.113 - Pre-existing type 2 diabetes mellitus, in , third trimester (8) Headache Status: Acute Qualifiers: Headache chronicity pattern: unspecified pattern Intractability: not intractable Plan - Discharge Medications Prescriptions: Nicotine [Habitrol] 14 mg TD DAILY #28 patch Insulin Regular, Human [HumuLIN R] See Protocol SUB-Q QACHS PRN #10 ml PRN Reason: Hyperglycemia labetaloL [Labetalol 200mg TAB] 200 mg PO BID #120 tablet Ibuprofen [Motrin] 800 mg PO Q8HR PRN #60 tablet PRN Reason: Pain , Severe (7-10) Insulin NPH, Human [NovoLIN N] 22 unit SUB-Q BID #10 ml oxyCODONE /ACETAMINOPHEN [Percocet 5/325] 1 tab PO Q6HR PRN #30 tablet PRN Reason: Pain NIFEdipine XL [Procardia Xl] 30 mg PO QDAY #30 tablet hydrOXYzine PAMOATE [Vistaril] 50 mg PO Q6HR PRN #45 capsule PRN Reason: Anxiety buPROPion HCl [Zyban] 150 mg PO BID #60 tab.er.12h - Provider Discharge Summary Activity: routine, no sex for 6 weeks, no heavy lifting 4 weeks, no strenuous exercise Diet: routine Instructions: routine Additional instructions: [] Smoking cessation referral if applicable(refer to patient education folder for contact #) [] Refer to [facility]'s [facility] Booklet Call your doctor immediately for: * Fever > 100.5 * Heavy vaginal bleeding ( >1 pad per hour) * Severe persistent headache * Shortness of breath * Reddened, hot, painful area to leg or breast * Drainage or odor from incision. * Keep incision clean and dry at all times and follow doctor's instructions regarding bathing/showering - Follow up plan Follow up: CLARIBEL VELAZQUEZ CNM [Advanced Practice Nurse] - 7 Days
[2019-11-03] MEDS: oxyCODONE /ACETAMINOPHEN 5-325MG TAB PO PRN (13:35)
--- NOTE | 2019-11-03 14:54 | Progress Note ---
Assessment and Plan Diabetes mellitus type 2 -Continue consistent carb diet, monitor blood glucose QACHS -Continue NPH twice daily before breakfast and before dinner along with sliding scale of insulin qachs, - A1c 9.2, d/c home with NPH 26 units BID and metformin 850mg BID -Patient is medically stable, further adjustment of insulin and follow-up for diabetes could be done as an outpatient and with HTN, cont BB and CCB - stable Headache, tension type -Denies any blurred vision or focal neurological deficit -CT head unremarkable s/p , Mx per primary DVT Px, ambulatory Subjective Date of service: 11/03/19 Principal diagnosis: s/p repeat LTCS, severe preeclampsia, IDDM uncontrolled Objective - Constitutional Vitals: Vital Signs - 12hr 11/03/19 08:12 Temperature 98.4 F Pulse Rate 85 Respiratory 20 Rate Blood Pressure 122/70 O2 Sat by Pulse 95 Oximetry - Labs CBC & Chem 7: 10/30/19 13:50 11/02/19 10:19 Labs: Abnormal lab results 11/02/19 11/02/19 11/03/19 Range/Units 17:35 22:19 08:29 POC Glucose 157 H 267 H 220 H (70-105) 11/03/19 Range/Units 11:46 POC Glucose 159 H (70-105)
[2019-11-03 16:44] VITALS: BP 129/80
== END 2019-11-03 18:30 | disposition home or self-care (01) | DRG 765 ==
LOC: APU 12:48 → TRG 12:48 → LD 15:38 → OBSVTOIN 15:38 → OB 10-30 20:52
PROVIDERS: ADMIT Obstetrics & Gynecology; ATTEND Obstetrics & Gynecology
PROC: 10D00Z1 Extraction of Products of Conception, Low, Open Approach (ICD-10-PCS; principal; 2019-10-29)
PROC: 3E0234Z Introduction of Serum, Toxoid and Vaccine into Muscle, Percutaneous Approach (ICD-10-PCS; 2019-10-29)
DX: O14.14 Severe pre-eclampsia complicating childbirth (principal); D62 Acute posthemorrhagic anemia; O98.82 Other maternal infectious and parasitic diseases complicating childbirth; O60.14X0 Preterm labor third trimester with preterm delivery third trimester, not applicable or unspecified; O24.12 Pre-existing type 2 diabetes mellitus, in childbirth; O34.211 Maternal care for low transverse scar from previous cesarean delivery; O90.81 Anemia of the puerperium; O13.4 Gestational [pregnancy-induced] hypertension without significant proteinuria, complicating childbirth; O99.214 Obesity complicating childbirth; E66.9 Obesity, unspecified; O99.344 Other mental disorders complicating childbirth; O69.81X0 Labor and delivery complicated by cord around neck, without compression, not applicable or unspecified; B37.3 Candidiasis of vulva and vagina; E11.9 Type 2 diabetes mellitus without complications; O75.89 Other specified complications of labor and delivery; O99.334 Smoking (tobacco) complicating childbirth; F17.200 Nicotine dependence, unspecified, uncomplicated; R51 Headache; O26.893 Other specified pregnancy related conditions, third trimester; F41.8 Other specified anxiety disorders; Z83.3 Family history of diabetes mellitus; Z82.49 Family history of ischemic heart disease and other diseases of the circulatory system; Z67.11 Type A blood, Rh negative; Z79.4 Long term (current) use of insulin; Z3A.35 35 weeks gestation of pregnancy; Z37.0 Single live birth
CPT/HCPCS: 36415; 70470; 76815; 76816; 76819; 80053; 80307; 81001; 82565; 82947; 82962; 83036; 83615; 83735; 84156; 84450; 84460; 84550; 85025; 85027; 85461; 86592; 86706; 86762; 86850; 86900; 86901; 87806; G0378; A6250; J0360; J0690; J0702; J1170; J1815; J1885; J2370; J2405; J2590; J2765; J2790; J3475; J3490; J7030; J7120; Q0177; Q9967